=== PATIENT | female | born 1960 | race Caucasian/White ===

== ENCOUNTER → 2017-01-25 | Outpatient (CLI) | payer BC ==
[~2017-01-25] MED LIST: ACTOS 15MG TABL15 MG PO; ACTOS15 MG PO; ASPIRIN81 MG PO; BACTRIM DS 8001 TAB PO; BACTROBAN23 TP; BENADRYL 25MG C25 MG PO; CHEWABLE ASPIRI81 MG PO; DIAZEPAM5 MG PO; DOCUSATE SODIU100 MG PO; FISH OIL1000 MG PO; GARLIC500 MG PO; GLIPIZIDE10 MG PO; INSULIN GL100 UNITS/ SC; JANUMET 1000 MG1 TAB PO; JANUVIA100 MG PO; KEFLEX 500MG.500 MG PO; LEVOTHROID0.15 MG PO; LEVOTHYROXIN PO; LIPITOR20 M1 PO; LISINOPRIL 10MG10 MG PO; MACROBID 100MG100 MG PO; MECLIZINE12.5 MG PO; METFORMIN1000 MG PO; METFORMIN850 MG PO; METOPROLOL 25 M25 MG PO; NOVOLIN 70/30 710 ML SC; PRAVASTATIN 40M40 MG PO; PRILOSEC20 M1 PO; Prilosec20 MG PO; TESSALON PERLE100 MG PO; TYLENOL 325MG325 MG PO; VANCOMYCIN 101000 MG IV; ZITHROMAX Z PA250 MG PO; [UNRECOGNIZED DRUG - CODE] PO
== END ==
LOC: RAD 12:57
DX: R92.8 Other abnormal and inconclusive findings on diagnostic imaging of breast (principal)
CPT/HCPCS: G0206-LT

== ENCOUNTER → 2017-09-03 | Outpatient (CLI) | payer BC ==
[~2017-09-03] MED LIST changes: +ACETAMINOPHEN500 M3 PO; +BACTRIM DS 8001 TA1 PO; +BISOPROLOL 5MG T5 MG PO; +CETIRIZINE HCL10 MG PO; +CRESTOR40 MG PO; +FLUTICASONE 50M16 GM; -JANUMET 1000 MG1 TAB PO; +JANUMET XR 10001 TE1 PO; -LEVOTHROID0.15 MG PO; +LEVOTHYROXIN0.175 MG PO; +NITROGLYCE0.4 MG/Ac2 SL; +NORCO 325 MG-51 TAB PO; +OMEPRAZOLE20 MG PO; -PRAVASTATIN 40M40 MG PO; +TRESIBA FL200 UNIT/1 SQ
[2017-09-03 13:42] LABS: BUN 13 mg/dL (7-18)
[2017-09-03 13:43] LABS: GFR (ESTIMATED) 51 ML/MIN (59-)
== END ==
LOC: LAB 11:35
PROVIDERS: Nurse Practitioner Family
DX: E78.5 Hyperlipidemia, unspecified (principal); E11.9 Type 2 diabetes mellitus without complications; E03.9 Hypothyroidism, unspecified; Z00.00 Encounter for general adult medical examination without abnormal findings